=== PATIENT | male | born 1945 | race American Indian/Alaskan Native ===

== ENCOUNTER 2017-11-14 14:47 | Outpatient (CLI) | payer MEDICARE ==
--- NOTE | 2017-11-14 22:00 | XRay Report ---
FINAL REPORT PROCEDURE: Chest. TECHNIQUE: PA and lateral views. HISTORY: Cough. COMPARISON: No prior studies are available for comparison. FINDINGS: The heart size is normal. There is mild tortuosity of the thoracic aorta. The lungs are clear and well expanded. There are no pleural effusions. The soft tissues and regional skeleton are unremarkable. IMPRESSION: No evidence of acute disease.
== END 2017-11-14 14:48 | disposition home or self-care (01) ==
LOC: XRAY 14:47
PROVIDERS: ATTEND Internal Medicine
DX: R05 Cough (principal); Q25.46 Tortuous aortic arch
CPT/HCPCS: 71046